=== PATIENT | female | born 1965 | race Caucasian/White ===

== ENCOUNTER 2019-05-26 08:23 | Emergency (ER) | payer BC ==
[~2019-05-26] VITALS: Ht 162.6 cm; Wt 70.8 kg
[2019-05-26] MEDS ORDERED: IV NORMAL SALINE 1000ML BAG 1,000 ML IV SCH (09:13)
--- NOTE | 2019-05-26 09:20 | PHYS DOC ---
Adult General Chief Complaint Chief Complaint: PAIN ON URINATION HPI HPI Patient is a 53 year old female who presents with dysuria, diarrhea. She was diagnosed with urinary tract infection and mid to late March. Pr escribed Macrobid. Failed to take the antibiotic as directed. Did not follow up with primary doctor following this visit. Presents today with ongoing dysuria, frequency. She reports 25-30 episodes of nonbloody diarrhea starting yesterday. Lower abdominal cramping. Nonradiating. Mild to moderate. No pattern. Denies melena. No hematochezia. Reports nausea without vomiting. No fever or chills. No malaise. No weakness. No known sick contacts. No suspicion of food borne illness. No recent travel. No additional antibiotic use. Review of Systems Review of Systems Constitutional: Denies fever or chills. [] Eyes: Denies change in visual acuity. [] HENT: Denies nasal congestion or sore throat. [] Respiratory: Denies cough or shortness of breath. [] Cardiovascular: Denies chest pain or edema. [] GI: As above. [] : Denies hematuria. [] Musculoskeletal: Denies back pain or joint pain. [] Integument: Denies rash. [] Neurologic: Denies headache, focal weakness or sensory changes. [] Endocrine: Denies polyuria or polydipsia. [] Lymphatic: Denies swollen glands. [] Psychiatric: Denies depression or anxiety. [] Current Medications Current Medications Current Medications Medications (Trade) Dose Ordered Sig/Diana Start Time Stop Time Status Last Admin Dose Admin Sodium Chloride 1,000 ml @ 1,000 mls/hr Q1H 05/26/19 09:13 05/26/19 10:12 DC 05/26/19 09:37 1,000 MLS/HR Allergies Allergies Allergies Coded Allergies Type Severity Reaction Last Updated Verified No Known Drug Allergies 05/26/19 No Physical Exam Physical Exam Constitutional: Well developed, well nourished, no acute distress, non-toxic appearance. [] HENT: Normocephalic, atraumatic, bilateral external ears normal, oropharynx moist, no oral exudates, nose normal. [] Eyes: PERRLA, EOMI, conjunctiva normal, no discharge. [] Neck: Normal range of motion, no tenderness, supple, no stridor. [] Cardiovascular:Heart rate regular rhythm, no murmur [] Lungs & Thorax: Bilateral breath sounds clear to auscultation [] Abdomen: Bowel sounds normal, soft, mild lower abdominal tenderness- no focal ttp. no masses, no pulsatile masses. [] Skin: Warm, dry, no erythema, no rash. [] Back: No tenderness, no CVA tenderness. [] Extremities: No tenderness, no cyanosis, no clubbing, ROM intact, no edema. [] Neurologic: Alert and oriented X 3, normal motor function, normal sensory function, no focal deficits noted. [] Psychologic: Affect normal, judgement normal, mood normal. [] Current Patient Data Vital Signs Vital Signs Date Time Temp Pulse Resp B/P (MAP) Pulse Ox O2 Delivery O2 Flow Rate FiO2 05/26/19 10:08 66 16 130/66 (87) 95 Room Air 05/26/19 08:57 97.8 97.8 Lab Values Laboratory Tests Test 05/26/19 09:10 05/26/19 09:33 Urine Collection Type Unknown Urine Color Yellow Urine Clarity Clear Urine pH 6.0 Urine Specific [place] 1.020 Urine Protein Negative mg/dL (NEG-TRACE) Urine Glucose (UA) Negative mg/dL (NEG) Urine Ketones (Stick) Negative mg/dL (NEG) Urine Blood Negative (NEG) Urine Nitrite Negative (NEG) Urine Bilirubin Negative (NEG) Urine Urobilinogen Dipstick 0.2 mg/dL (0.2 mg/dL) Urine Leukocyte Esterase Negative (NEG) Urine RBC 0 /HPF (0-2) Urine WBC 0 /HPF (0-4) Urine Squamous Epithelial Cells Many /LPF Urine Bacteria 0 /HPF (0-FEW) Urine Mucus Marked /LPF White Blood Count 7.1 x10^3/uL (4.0-11.0) Red Blood Count 4.77 x10^6/uL (3.50-5.40) Hemoglobin 14.5 g/dL (12.0-15.5) Hematocrit 42.5 % (36.0-47.0) Mean Corpuscular Volume 89 fL (79-100) Mean Corpuscular Hemoglobin 30 pg (25-35) Mean Corpuscular Hemoglobin Concent 34 g/dL (31-37) Red Cell Distribution Width 12.7 % (11.5-14.5) Platelet Count 303 x10^3/uL (140-400) Neutrophils (%) (Auto) 62 % (31-73) Lymphocytes (%) (Auto) 29 % (24-48) Monocytes (%) (Auto) 8 % (0-9) Eosinophils (%) (Auto) 1 % (0-3) Basophils (%) (Auto) 0 % (0-3) Neutrophils # (Auto) 4.4 x10^3/uL (1.8-7.7) Lymphocytes # (Auto) 2.1 x10^3/uL (1.0-4.8) Monocytes # (Auto) 0.5 x10^3/uL (0.0-1.1) Eosinophils # (Auto) 0.1 x10^3/uL (0.0-0.7) Basophils # (Auto) 0.0 x10^3/uL (0.0-0.2) Sodium Level 138 mmol/L (136-145) Potassium Level 4.0 mmol/L (3.5-5.1) Chloride Level 102 mmol/L (98-107) Carbon Dioxide Level 28 mmol/L (21-32) Anion Gap 8 (6-14) Blood Urea Nitrogen 9 mg/dL (7-20) Creatinine 0.8 mg/dL (0.6-1.0) Estimated GFR (Cockcroft-Gault) 74.7 BUN/Creatinine Ratio 11 (6-20) Glucose Level 103 mg/dL (70-99) H Calcium Level 9.3 mg/dL (8.5-10.1) Total Bilirubin 0.3 mg/dL (0.2-1.0) Aspartate Amino Transferase (AST) 16 U/L (15-37) Alanine Aminotransferase (ALT) 22 U/L (14-59) Alkaline Phosphatase 98 U/L (46-116) Total Protein 7.7 g/dL (6.4-8.2) Albumin 4.0 g/dL (3.4-5.0) Albumin/Globulin Ratio 1.1 (1.0-1.7) Laboratory Tests 05/26/19 09:33 Laboratory Tests 05/26/19 09:33 EKG EKG [] Radiology/Procedures Radiology/Procedures [] Course & Med Decision Making Course & Med Decision Making Pertinent Labs and Imaging studies reviewed. (See chart for details) In summary patient presents with diarrhea and concern for urinary tract infection. Urinalysis does not suggest infection. Exam remains benign. Feels slightly better after IV fluid. No additional episodes of diarrhea while in the emergency department. Recently on antibiotics- no risk for C. difficile otherwise. Offered to add stool studies, patient prefers to f/u with PCP for these studies of sx persist. She reports concern for STD but declines STD testing while in the emergency department. States she will follow up with primary doctor for routine Pap smear and STD testing in the near future. Strict return precautions reviewed with patient. Recommend close follow-up with primary doctor. Return immediately if worse. Dragon Disclaimer Dragon Disclaimer This electronic medical record was generated, in whole or in part, using a voice recognition dictation system. PAUL GREEN APRN May 26, 2019 09:20
[2019-05-26 09:30] LABS: BILIRUBIN,URINE NEGATIVE (NEG); CLARITY,URINE CLEAR; COLOR,URINE YELLOW; NITRITE,URINE NEGATIVE (NEG); PROTEIN,URINE NEGATIVE (NEG-TRACE); UROBILINOGEN,URINE 0.2 mg/dL (0.2 mg/dL)
[2019-05-26 09:47] LABS: BACTERIA,URINE 0 /HPF (0-FEW); RBC,URINE 0 /HPF (0-2); SQUAMOUS EPITHELIAL CELL,UR MANY /LPF; WBC,URINE 0 /HPF (0-4)
[2019-05-26 09:47] LABS: BASO % 0 % (0-3); EOS # 0.1 x10^3/uL (0.0-0.7); EOS % 1 % (0-3); HEMATOCRIT 42.5 % (36.0-47.0); HEMOGLOBIN 14.5 g/dL (12.0-15.5); LYMPH # 2.1 x10^3/uL (1.0-4.8); LYMPH % 29 % (24-48); MEAN CORPUSCULAR HEMOGLOBIN 30 pg (25-35); MEAN CORPUSCULAR HGB CONC 34 g/dL (31-37); MEAN CORPUSCULAR VOLUME 89 fL (79-100); MONO # 0.5 x10^3/uL (0.0-1.1); MONO % 8 % (0-9); NEUT # 4.4 x10^3/uL (1.8-7.7); NEUT % 62 % (31-73); PLATELET COUNT 303 x10^3/uL (140-400); RED BLOOD COUNT 4.77 x10^6/uL (3.50-5.40); RED CELL DISTRIBUTION WIDTH 12.7 % (11.5-14.5); WHITE BLOOD COUNT 7.1 x10^3/uL (4.0-11.0)
[2019-05-26 09:54] LABS: CALCIUM 9.3 mg/dL (8.5-10.1); CREATININE 0.8 mg/dL (0.6-1.0); GFR 74.7
[2019-05-26 10:00] LABS: ALBUMIN/GLOBULIN RATIO 1.1 (1.0-1.7); TOTAL BILIRUBIN 0.3 mg/dL (0.2-1.0); TOTAL PROTEIN 7.7 g/dL (6.4-8.2)
--- NOTE | 2019-05-26 10:59 | PHYS DOC ---
Past Medical History Past Medical History: No Pertinent History Past Surgical History: Tubal ligation Alcohol Use: None Drug Use: None Adult General Chief Complaint Chief Complaint: PAIN ON URINATION [facility] HPI Patient is a 53 year old female presents for evaluation of dysuria, diarrhea. She was diagnosed with urinary tract infection in mid to late March. Prescribed a course of Macrobid. She took the equivalent of 8 days of the medication to take the medication on a regular basis. Follow-up with primary doctor. She presents with ongoing dysuria, mild suprapubic discomfort/cramps. No notes diarrhea over the last 24 hours. 20+ episodes of nonbloody diarrhea. She reports nausea but no vomiting. No fever. No malaise. No known sick contacts. No suspicion of food borne illness. No recent travel. No additional antibiotic use other than Macrobid roughly 1 month ago. Review of Systems Review of Systems Constitutional: Denies fever or chills [] Eyes: Denies change in visual acuity, redness, or eye pain [] HENT: Denies nasal congestion or sore throat [] Respiratory: Denies cough or shortness of breath [] Cardiovascular: No additional information not addressed in HPI [] GI: As above[] : Denies hematuria [] Musculoskeletal: Denies back pain or joint pain [] Integument: Denies rash or skin lesions [] Neurologic: Denies headache, focal weakness or sensory changes [] Endocrine: Denies polyuria or polydipsia [] All other systems were reviewed and found to be within normal limits, except as documented in this note. Current Medications Current Medications Current Medications Medications (Trade) Dose Ordered Sig/[facility] Start Time Stop Time Status Last Admin Dose Admin Sodium Chloride 1,000 ml @ 1,000 mls/hr Q1H 05/26/19 09:13 05/26/19 10:12 DC 05/26/19 09:37 1,000 MLS/HR Allergies Allergies Allergies Coded Allergies Type Severity Reaction Last Updated Verified No Known Drug Allergies 05/26/19 No Physical Exam Physical Exam Constitutional: Well developed, well nourished, no acute distress, non-toxic appearance. [] HENT: Normocephalic, atraumatic, bilateral external ears normal, oropharynx moist, no oral exudates, nose normal. [] Eyes: PERRLA, EOMI, conjunctiva normal, no discharge. [] Neck: Normal range of motion, no tenderness, supple, no stridor. [] Cardiovascular:Heart rate regular rhythm, no murmur [] Lungs & Thorax: Bilateral breath sounds clear to auscultation [] Abdomen: Bowel sounds normal, soft, mild suprapubic tenderness. No focal right lower quadrant tenderness., no masses, no pulsatile masses. [] Skin: Warm, dry, no erythema, no rash. [] Back: No tenderness, no CVA tenderness. [] Extremities: No tenderness, no cyanosis, no clubbing, ROM intact, no edema. [] Neurologic: Alert and oriented X 3, normal motor function, normal sensory function, no focal deficits noted. [] Psychologic: Affect normal, judgement normal, mood normal. [] Current Patient Data Vital Signs Vital Signs Date Time Temp Pulse Resp B/P (MAP) Pulse Ox O2 Delivery O2 Flow Rate FiO2 05/26/19 10:08 66 16 130/66 (87) 95 Room Air 05/26/19 08:57 97.8 97.8 Lab Values Laboratory Tests Test 05/26/19 09:10 05/26/19 09:33 Urine Collection Type Unknown Urine Color Yellow Urine Clarity Clear Urine pH 6.0 Urine Specific [place] 1.020 Urine Protein Negative mg/dL (NEG-TRACE) Urine Glucose (UA) Negative mg/dL (NEG) Urine Ketones (Stick) Negative mg/dL (NEG) Urine Blood Negative (NEG) Urine Nitrite Negative (NEG) Urine Bilirubin Negative (NEG) Urine Urobilinogen Dipstick 0.2 mg/dL (0.2 mg/dL) Urine Leukocyte Esterase Negative (NEG) Urine RBC 0 /HPF (0-2) Urine WBC 0 /HPF (0-4) Urine Squamous Epithelial Cells Many /LPF Urine Bacteria 0 /HPF (0-FEW) Urine Mucus Marked /LPF White Blood Count 7.1 x10^3/uL (4.0-11.0) Red Blood Count 4.77 x10^6/uL (3.50-5.40) Hemoglobin 14.5 g/dL (12.0-15.5) Hematocrit 42.5 % (36.0-47.0) Mean Corpuscular Volume 89 fL (79-100) Mean Corpuscular Hemoglobin 30 pg (25-35) Mean Corpuscular Hemoglobin Concent 34 g/dL (31-37) Red Cell Distribution Width 12.7 % (11.5-14.5) Platelet Count 303 x10^3/uL (140-400) Neutrophils (%) (Auto) 62 % (31-73) Lymphocytes (%) (Auto) 29 % (24-48) Monocytes (%) (Auto) 8 % (0-9) Eosinophils (%) (Auto) 1 % (0-3) Basophils (%) (Auto) 0 % (0-3) Neutrophils # (Auto) 4.4 x10^3/uL (1.8-7.7) Lymphocytes # (Auto) 2.1 x10^3/uL (1.0-4.8) Monocytes # (Auto) 0.5 x10^3/uL (0.0-1.1) Eosinophils # (Auto) 0.1 x10^3/uL (0.0-0.7) Basophils # (Auto) 0.0 x10^3/uL (0.0-0.2) Sodium Level 138 mmol/L (136-145) Potassium Level 4.0 mmol/L (3.5-5.1) Chloride Level 102 mmol/L (98-107) Carbon Dioxide Level 28 mmol/L (21-32) Anion Gap 8 (6-14) Blood Urea Nitrogen 9 mg/dL (7-20) Creatinine 0.8 mg/dL (0.6-1.0) Estimated GFR (Cockcroft-Gault) 74.7 BUN/Creatinine Ratio 11 (6-20) Glucose Level 103 mg/dL (70-99) H Calcium Level 9.3 mg/dL (8.5-10.1) Total Bilirubin 0.3 mg/dL (0.2-1.0) Aspartate Amino Transferase (AST) 16 U/L (15-37) Alanine Aminotransferase (ALT) 22 U/L (14-59) Alkaline Phosphatase 98 U/L (46-116) Total Protein 7.7 g/dL (6.4-8.2) Albumin 4.0 g/dL (3.4-5.0) Albumin/Globulin Ratio 1.1 (1.0-1.7) Laboratory Tests 05/26/19 09:33 Laboratory Tests 05/26/19 09:33 EKG EKG [] Radiology/Procedures Radiology/Procedures [] Course & Med Decision Making Course & Med Decision Making Pertinent Labs and Imaging studies reviewed. (See chart for details) [] Plantars urine. Exam benign. No focal right lower quadrant tenderness at time of disposition. Patient states she feels better after IV fluid. No diarrhea while in the emergency department. She now reports concern for STD. STD testing as been offered. Patient wishes to follow up with primary doctor for routine (overdue) Pap smear and STD testing at that time. Recent antibiotic use-C. difficile considered. Offered stool studies. Patient declines and wishes to follow-up primary doctor for these test if symptoms persist. Recommend close follow-up with primary doctor. Strict return precautions reviewed with patient. Follow-up as directed and return immediately if worse Dragon Disclaimer Dragon Disclaimer This electronic medical record was generated, in whole or in part, using a voice recognition dictation system. Departure Departure Impression: Primary Impression: Diarrhea Disposition: 01 HOME/RESIDENCE PRIOR TO ADM Condition: STABLE Referrals: BATSHEVA WATKINS MD (PCP) Patient Instructions: Diarrhea, [id number] PAUL GREEN APRN May 26, 2019 10:59
[2019-05-26 11:08] VITALS: BP 115/56
== END 2019-05-26 11:20 | disposition home or self-care (01) ==
LOC: ER 08:23
DX: R19.7 Diarrhea, unspecified (principal); R30.0 Dysuria; Z87.440 Personal history of urinary (tract) infections; Z98.51 Tubal ligation status
CPT/HCPCS: 36415; 80053; 81001; 85025; 96360; 96361; 99285; J7030

== ENCOUNTER 2019-09-09 11:02 | Emergency (ER) | payer BC ==
[~2019-09-09] VITALS: Ht 162.6 cm; Wt 70.0 kg
[2019-09-09 11:57] LABS: BILIRUBIN,URINE NEGATIVE (NEG); CLARITY,URINE CLEAR; COLOR,URINE YELLOW; NITRITE,URINE NEGATIVE (NEG); PH,URINE 5.5 (<5.0-8.0); PROTEIN,URINE NEGATIVE (NEG-TRACE)
[2019-09-09 12:16] LABS: BACTERIA,URINE 0 /HPF (0-FEW); SQUAMOUS EPITHELIAL CELL,UR MANY /LPF; WBC,URINE RARE /HPF (0-4)
[2019-09-09] MEDS ORDERED: ONDANSETRON PF 4 MG/2 ML VIAL. IV ONE (12:45)
[2019-09-09] MEDS ORDERED: IV NORMAL SALINE 1000ML BAG 1,000 ML IV ONE (12:45)
--- NOTE | 2019-09-09 13:10 | PHYS DOC ---
Past Medical History Past Medical History: COPD Past Surgical History: Tubal ligation Smoking Status: Current Every Day Smoker Alcohol Use: Occasionally Drug Use: None Adult General Chief Complaint Chief Complaint: URINARY FREQUENCY HPI HPI Patient is a 53 year old female who presents to the ER with complaints of increased urinary frequency, foul smelling urine and R flank pain that began 2 weeks ago. Pt states that for the last 3 days she has also had a fever up to 101.1. Patient reports nausea but denies any vomiting, or diarrhea. She denies any blood in her urine. Patient reports a history of emphysema, she denies any change in her chronic cough since the onset of the symptoms, she also denies any shortness of breath or increased work of breathing. Patient denies any wheezing, states she continues to smoke cigarettes daily. She denies any chest pain, palpitations, dizziness, ear pain, sore throat, or body aches. Patient states she has had a slight headache but this is nothing that is atypical for her. She currently rates the pain in her right flank a 5 out of 10 on the pain scale, she denies any alleviating or exacerbating factors. Review of Systems Review of Systems Complete ROS is negative unless otherwise noted in HPI. Current Medications Current Medications Current Medications Medications (Trade) Dose Ordered Sig/Diana Start Time Stop Time Status Last Admin Dose Admin Ondansetron HCl (Zofran) 4 mg 1X ONCE 09/09/19 12:45 09/09/19 12:46 DC 09/09/19 13:19 4 MG Sodium Chloride 1,000 ml @ 1,000 mls/hr 1X ONCE 09/09/19 12:45 09/09/19 13:44 DC 09/09/19 13:19 1,000 MLS/HR Allergies Allergies Allergies Coded Allergies Type Severity Reaction Last Updated Verified No Known Drug Allergies 05/26/19 No Physical Exam Physical Exam Constitutional: Well developed, well nourished, no acute distress, non-toxic appearance. [] HENT: Normocephalic, atraumatic, bilateral external ears normal, nose normal. [] Eyes: PERRLA, EOMI, conjunctiva normal, no discharge. [] Neck: Normal range of motion, no tenderness, supple, no stridor. [] Cardiovascular:Heart rate regular rhythm, no murmur [] Lungs & Thorax: Bilateral breath sounds clear to auscultation in upper lobes, scattered expiratory wheezes posteriorly, diminished in RLL, no retractions, unlabored respirations, no acute distress. [] Abdomen: Bowel sounds normal, soft, no tenderness, no masses, no pulsatile masses. [] Skin: Warm, dry, no erythema, no rash. [] Back: No CVA tenderness. [] Extremities: No cyanosis, ROM intact Neurologic: Alert and oriented X 3, no focal deficits noted. [] Psychologic: Affect normal, judgement normal, mood normal. [] Current Patient Data Vital Signs Vital Signs Date Time Temp Pulse Resp B/P (MAP) Pulse Ox O2 Delivery O2 Flow Rate FiO2 09/09/19 11:08 98.4 89 20 129/64 (85) 94 Room Air 98.4 Lab Values Laboratory Tests Test 09/09/19 11:25 09/09/19 12:50 Urine Collection Type Unknown Urine Color Yellow Urine Clarity Clear Urine pH 5.5 (<5.0-8.0) Urine Specific [place] 1.015 (1.000-1.030) Urine Protein Negative mg/dL (NEG-TRACE) Urine Glucose (UA) Negative mg/dL (NEG) Urine Ketones (Stick) Negative mg/dL (NEG) Urine Blood Moderate (NEG) Urine Nitrite Negative (NEG) Urine Bilirubin Negative (NEG) Urine Urobilinogen Dipstick 1.0 mg/dL (0.2 mg/dL) Urine Leukocyte Esterase Negative (NEG) Urine RBC 3-5 /HPF (0-2) Urine WBC Rare /HPF (0-4) Urine Squamous Epithelial Cells Many /LPF Urine Bacteria 0 /HPF (0-FEW) Urine Mucus Marked /LPF White Blood Count 6.9 x10^3/uL (4.0-11.0) Red Blood Count 4.61 x10^6/uL (3.50-5.40) Hemoglobin 13.7 g/dL (12.0-15.5) Hematocrit 40.6 % (36.0-47.0) Mean Corpuscular Volume 88 fL (79-100) Mean Corpuscular Hemoglobin 30 pg (25-35) Mean Corpuscular Hemoglobin Concent 34 g/dL (31-37) Red Cell Distribution Width 13.5 % (11.5-14.5) Platelet Count 244 x10^3/uL (140-400) Neutrophils (%) (Auto) 69 % (31-73) Lymphocytes (%) (Auto) 17 % (24-48) L Monocytes (%) (Auto) 9 % (0-9) Eosinophils (%) (Auto) 4 % (0-3) H Basophils (%) (Auto) 1 % (0-3) Neutrophils # (Auto) 4.7 x10^3/uL (1.8-7.7) Lymphocytes # (Auto) 1.2 x10^3/uL (1.0-4.8) Monocytes # (Auto) 0.6 x10^3/uL (0.0-1.1) Eosinophils # (Auto) 0.3 x10^3/uL (0.0-0.7) Basophils # (Auto) 0.1 x10^3/uL (0.0-0.2) Sodium Level 137 mmol/L (136-145) Potassium Level 4.0 mmol/L (3.5-5.1) Chloride Level 99 mmol/L (98-107) Carbon Dioxide Level 25 mmol/L (21-32) Anion Gap 13 (6-14) Blood Urea Nitrogen 10 mg/dL (7-20) Creatinine 0.6 mg/dL (0.6-1.0) Estimated GFR (Cockcroft-Gault) 104.2 BUN/Creatinine Ratio 17 (6-20) Glucose Level 118 mg/dL (70-99) H Calcium Level 9.1 mg/dL (8.5-10.1) Total Bilirubin 0.4 mg/dL (0.2-1.0) Aspartate Amino Transferase (AST) 125 U/L (15-37) H Alanine Aminotransferase (ALT) 352 U/L (14-59) H Alkaline Phosphatase 217 U/L (46-116) H Total Protein 7.4 g/dL (6.4-8.2) Albumin 3.7 g/dL (3.4-5.0) Albumin/Globulin Ratio 1.0 (1.0-1.7) Laboratory Tests 09/09/19 12:50 Laboratory Tests 09/09/19 12:50 EKG EKG [] Radiology/Procedures Radiology/Procedures PROCEDURE: CHEST PA & LATERAL CHEST PA LATERAL History: Diminished right lower lobe lung sounds Comparison: 09/14/2006 Portable Chest X-ray Exam. Findings: Frontal and lateral views of the chest were obtained. The cardiomediastinal silhouette is normal. Pulmonary vasculature is normal. The lungs are clear. Bullae involving the upper lung altman noted. Calcified right lower hilar and left infrahilar lymph nodes are present. No pleural effusion or pneumothorax is seen. There is no acute bone abnormality. Left subphrenic calcific density is again noted. IMPRESSION: No acute cardiopulmonary process. PROCEDURE: CT ABDOMEN PELVIS WO CONTRAST CT abdomen pelvis without contrast. HISTORY: Right flank pain, hematuria CT scan the abdomen pelvis was done without contrast. Lung bases are clear. There is a calcified granuloma in the left lower lobe. There is scarring or atelectasis in the lingula. A liver lesion is not identified. Gallbladder is contracted. Spleen and adrenal glands are unremarkable. A definite pancreatic lesion is not identified. There is no mass or hydronephrosis in the kidneys. An intrarenal calculus is not identified. There are phleboliths in the pelvis. A ureteral calculus is not identified. Uterus and ovaries are unremarkable. Appendix is normal extending into the pelvis on the right near the right ovary. There is no bowel obstruction. There is no free fluid or ascites or free air. There is mild atherosclerotic change in the aorta without an aneurysm. IMPRESSION: 1. Contracted gallbladder. 2. No renal or ureteral calculus noted. 3. No bowel obstruction. 4. Normal appendix. ] Course & Med Decision Making Course & Med Decision Making Pertinent Labs and Imaging studies reviewed. (See chart for details) Patient is a 53-year-old female who presented to the emergency room for evaluation of foul-smelling urine, right flank pain, and increased urinary frequency for 2 weeks. She also reported concerns about a fever up to 101.1 that began 3 days ago. Initially I ordered a urinalysis that showed no nitrates, 3-5 red blood cells, rare white blood cells and no bacteria, I then ordered blood work including CBC, CMP, CT abdomen pelvis without contrast and a chest x-ray. CBC was unremarkable, CMP revealed a blood glucose of 118, elevated liver enzymes AST was 125, ALT was 352, alk phos is 217; chest x-ray revealed no acute cardiopulmonary process; CT abdomen revealed a contracted gallbladder, no renal or ureteral calculi, no bowel obstruction and a normal appendix. Her vital signs are stable throughout the emergency department. Patient denied any need of pain medication throughout her stay. She was given 1 L of normal saline and 4 mg of Zofran in the emergency department. Patient was encouraged to follow-up with her primary care doctor for further evaluation and monitoring of the elevated liver enzymes and encouraged to follow-up with urology about the blood in her urine. Patient verbalized an understanding of home care, medications, follow-up, and return to ED instructions and was in agreement with the plan of care. [] Dragon Disclaimer Dragon Disclaimer This electronic medical record was generated, in whole or in part, using a voice recognition dictation system. Departure Departure Impression: Primary Impression: Hematuria Additional Impressions: Flank pain Elevated liver enzymes Disposition: HOME, SELF-CARE Condition: STABLE Referrals: BATSHEVA WATKINS MD (PCP) Patient Instructions: Flank Pain, [id number], Hematuria, Adult Additional Instructions: Recommend that you follow up with your primary care doctor for further evaluation of elevated liver function tests. Follow up with a urologist for further evaluation of the blood in your urine. Increase clear fluid intake and avoid bladder irritants like caffeine, carbonation, and spicy foods. Return to the ER if your symptoms worsen. Problem Qualifiers Primary Impression: Hematuria CONCHITA SILVA APRN Sep 09, 2019 13:10
[2019-09-09 13:17] LABS: CALCIUM 9.1 mg/dL (8.5-10.1); CREATININE 0.6 mg/dL (0.6-1.0); GFR 104.2
--- NOTE | 2019-09-09 13:21 | RAD ---
CT abdomen pelvis without contrast. HISTORY: Right flank pain, hematuria CT scan the abdomen pelvis was done without contrast. Lung bases are clear. There is a calcified granuloma in the left lower lobe. There is scarring or atelectasis in the lingula. A liver lesion is not identified. Gallbladder is contracted. Spleen and adrenal glands are unremarkable. A definite pancreatic lesion is not identified. There is no mass or hydronephrosis in the kidneys. An intrarenal calculus is not identified. There are phleboliths in the pelvis. A ureteral calculus is not identified. Uterus and ovaries are unremarkable. Appendix is normal extending into the pelvis on the right near the right ovary. There is no bowel obstruction. There is no free fluid or ascites or free air. There is mild atherosclerotic change in the aorta without an aneurysm. IMPRESSION: 1. Contracted gallbladder. 2. No renal or ureteral calculus noted. 3. No bowel obstruction. 4. Normal appendix. PQRS Compliance Statement: One or more of the following individualized dose reduction techniques were utilized for this examination: 1. Automated exposure control 2. Adjustment of the mA and/or kV according to patient size 3. Use of iterative reconstruction technique Electronically signed by: Brien Gomez MD (09/09/2019 1:18 PM) [id number]
[2019-09-09 13:23] LABS: ALBUMIN 3.7 g/dL (3.4-5.0); TOTAL BILIRUBIN 0.4 mg/dL (0.2-1.0); TOTAL PROTEIN 7.4 g/dL (6.4-8.2)
[2019-09-09 13:29] LABS: BASO # 0.1 x10^3/uL (0.0-0.2); BASO % 1 % (0-3); EOS # 0.3 x10^3/uL (0.0-0.7); EOS % 4 % (0-3); HEMATOCRIT 40.6 % (36.0-47.0); HEMOGLOBIN 13.7 g/dL (12.0-15.5); LYMPH # 1.2 x10^3/uL (1.0-4.8); LYMPH % 17 % (24-48); MEAN CORPUSCULAR HEMOGLOBIN 30 pg (25-35); MEAN CORPUSCULAR HGB CONC 34 g/dL (31-37); MEAN CORPUSCULAR VOLUME 88 fL (79-100); MONO # 0.6 x10^3/uL (0.0-1.1); MONO % 9 % (0-9); NEUT # 4.7 x10^3/uL (1.8-7.7); NEUT % 69 % (31-73); PLATELET COUNT 244 x10^3/uL (140-400); RED BLOOD COUNT 4.61 x10^6/uL (3.50-5.40); RED CELL DISTRIBUTION WIDTH 13.5 % (11.5-14.5); WHITE BLOOD COUNT 6.9 x10^3/uL (4.0-11.0)
[2019-09-09 13:30] VITALS: BP 141/80
--- NOTE | 2019-09-09 13:38 | RAD ---
CHEST PA LATERAL History: Diminished right lower lobe lung sounds Comparison: 09/14/2006 Portable Chest X-ray Exam. Findings: Frontal and lateral views of the chest were obtained. The cardiomediastinal silhouette is normal. Pulmonary vasculature is normal. The lungs are clear. Bullae involving the upper lung altman noted. Calcified right lower hilar and left infrahilar lymph nodes are present. No pleural effusion or pneumothorax is seen. There is no acute bone abnormality. Left subphrenic calcific density is again noted. IMPRESSION: No acute cardiopulmonary process. Electronically signed by: Gaudencio Sylvester MD (09/09/2019 1:35 PM) [id number]
== END 2019-09-09 14:35 | disposition home or self-care (01) ==
LOC: ER 11:02
DX: R31.9 Hematuria, unspecified (principal); R74.8 Abnormal levels of other serum enzymes; R10.9 Unspecified abdominal pain; R50.9 Fever, unspecified; R11.0 Nausea; J44.9 Chronic obstructive pulmonary disease, unspecified; F17.200 Nicotine dependence, unspecified, uncomplicated; Z98.51 Tubal ligation status
CPT/HCPCS: 36415; 71046; 74176; 80053; 81001; 85025; 96374; 99285; J2405; J7030